=== PATIENT | male | born 1980 | race Two or more races ===

== ENCOUNTER 2018-01-19 18:21 | Emergency (ER) | payer MEDICAID ==
[~2018-01-19] VITALS: Ht 165.1 cm; Wt 108.9 kg
[2018-01-19 18:21] VITALS: BP 155/97
== END 2018-01-19 19:34 | disposition home or self-care (01) ==
LOC: ER 18:36
DX: S61.431A Puncture wound without foreign body of right hand, initial encounter (principal); S61.215D Laceration without foreign body of left ring finger without damage to nail, subsequent encounter; I10 Essential (primary) hypertension; E11.9 Type 2 diabetes mellitus without complications; W57.XXXA Bitten or stung by nonvenomous insect and other nonvenomous arthropods, initial encounter; Y93.89 Activity, other specified; Y92.89 Other specified places as the place of occurrence of the external cause; Y99.8 Other external cause status
CPT/HCPCS: A4606; Z7610

== ENCOUNTER 2018-01-26 20:10 | Emergency (ER) | payer MEDICAID ==
[~2018-01-26] VITALS: Ht 162.6 cm; Wt 108.9 kg
[2018-01-26 20:11] VITALS: BP 164/99
== END 2018-01-26 21:13 | disposition home or self-care (01) ==
LOC: ER 20:13
DX: S61.215D Laceration without foreign body of left ring finger without damage to nail, subsequent encounter (principal); I10 Essential (primary) hypertension; E11.9 Type 2 diabetes mellitus without complications; X58.XXXD Exposure to other specified factors, subsequent encounter
CPT/HCPCS: A4606; Z7502; Z7610